=== PATIENT | male | born 2000 | race Two or more races ===

== ENCOUNTER 2025-07-03 23:47 | Emergency (ER) | payer BC, SELFPAY ==
[2025-07-03 23:47] VITALS: BMI 32.3
[2025-07-04 01:29] VITALS: BP 133/89; PULSE 124; RESP 20; TEMP 37.5; O2SAT 97
[2025-07-04 01:34] VITALS: TEMP 37
[2025-07-04] MEDS: KETOROLAC INJ 30 MG/ML VIAL IM (01:34)
--- NOTE | 2025-07-04 01:41 | EDNOTE_ITS ---
Upper Respiratory Inf. RME/HPI General Chief Complaint: Flu Like Symptoms Stated Complaint: FLU LIKE SYMPTOMS Time Seen by Provider: 07/04/25 01:20 Source: patient Arrival date/time: 07/03/25 23:47 Mode of arrival: ambulatory Limitations: no limitations RME / HPI RME / HPI Narrative: This patient is a 24-year-old male who arrives to the ED today with complaints of chills, cough and congestion, headache and general body aches for the past day. Patient states that symptoms began yesterday morning and have been relatively consistent. Patient states possible subjective fevers. Patient was hypertensive and tachycardic on arrival. Related Data Previous Rx's ?Medication ?Instructions ?Recorded ibuprofen 600 mg tablet 600 mg PO Q6H #30 tabs 04/20 acetaminophen 500 mg tablet 500 mg PO Q4H PRN fever or pain 07/04/25 (Tylenol Extra Strength) #30 tabs benzonatate 100 mg capsule 100 mg PO TID PRN cough #20 caps 07/04/25 ibuprofen 800 mg tablet (IBU) 800 mg PO Q8H PRN pain # 20 tabs 07/04/25 oseltamivir 75 mg capsule (Tamiflu) 75 mg PO BID 5 day s #10 caps 07/04/25 Allergies Allergy/AdvReac Type Severity Reaction Status Date / Time No Known Allergies Allergy Verified 04/20/19 21:34 Review of Systems Review of Systems Systems Reviewed: All systems reviewed, normal except as documented Past Medical History Social History SMOKING STATUS: Never smoker ED Exam Narrative Physical exam: Patient looks mild to moderately toxic at time of evaluation. General Limitations: Present no limitations General appearance: Present alert and in distress (Patient appears moderately ill at time of evaluation.) Head Head exam: Present atraumatic Eye Eye exam: Present normal appearance, PERRL and EOMI ENT ENT exam: Present other (Patient displays coryza as well as a mildly beefy oropharynx with mild bilateral tonsillar pillar involvement. No exudate noted. Airways patent.) Neck Neck exam: Present normal inspection, full ROM and trachea midline Chest Chest inspection: Present normal inspection and symmetric chest wall rise Respiratory Respiratory exam: Present normal lung sounds bilaterally Cardiovascular Cardiovascular exam: Present regular rate, normal rhythm and normal heart sounds Abdominal Exam Abdominal exam: Present soft and normal bowel sounds Extremities Exam Extremities exam: Present normal inspection and full ROM Back Exam Back exam: Present normal inspection and full ROM Neurological Exam Neurological exam: Present alert, oriented X3 and CN II-XII intact Psychiatric Psychiatric exam: Present normal affect and normal mood Skin Skin exam: Present warm, dry, intact and normal color Course Quality Measures none Orders Category Date Time Status Bedside COVID-19 Antigen Test NOW Care 07/04/25 01:27 Active Bedside Influenza A&B Antigen Test NOW Care 07/04/25 01:27 Active Ketorolac Inj [Toradol Inj] Med 07/04/25 01:27 Discontinued 30 mg IM X1 ONE As noted above Vital Signs Vital signs: Vital Signs Temperature 99.5 F 07/04/25 01:29 Pulse Rate 124 H 07/04/25 01:29 Respiratory Rate 20 07/04/25 01:29 Blood Pressure 133/89 H 07/04/25 01:29 Pulse Oximetry (%) 97 07/04/25 01:29 Oxygen Delivery Method Room Air 07/04/25 01:29 As noted above plan Xander thank you ma'am Upper Respiratory Infection MDM Narrative MDM Narrative:: All studies performed the ED were evaluated by me personally. Swab studies confirmed influenza A diagnosis. Patient will be sent home with supportive medication and advised to utilize good hydration and healthy nutrition. Patient data External records reviewed:: [facility] previous records Clinical information provided by:: patient Social determinants that could affect healthcare access:: none Patient has the following chronic illnesses:: None How is presenting disease/condition affected by chronic disease/condition?: no chronic disease Evaluation data The following diagnostics were reviewed and interpreted by me:: other (specify) (None) Lab and/or radiology exams considered but not ordered:: None Interpretation Summary: None Medications / Prescriptions Medications or Prescriptions considered but not ordered:: None Medication administrations:: Medication Administration History Discontinued Medications Ketorolac Tromethamine (Ketorolac Inj 30 Mg/Ml Vial) 30 mg IM X1 ONE Stop: 07/04/25 01:28 Last Admin: 07/04/25 01:34 Dose: 30 mg Documented By: As noted above Consultations Consultation(s) initiated? (list below): No Diagnosis Upper Respiratory Differential Diagnosis: upper respiratory infection and influenza Most likely diagnosis given after review of the tests above:: Influenza A/hide a great really appreciate your patient so much my advice to you sure Admission Indicated Admission indicated?: not indicated Explain why admission is indicated or not indicated:: Unwarranted Admission Request Was there a request for admission?: No Disposition Plan Disposition Plan: Discharge Discharge Attestation Discharge Attestation: The patient and all family members were given an opportunity to ask questions and understood the discharge instructions. Discharge instructions specifically effects, indications for sooner follow up or return to the emergency department, and the expected course of current diagnosis. Patient condition: Stable Discharge Plan Plan Patient Disposition: HOME (Self Care) Prescriptions/Referrals Prescriptions/Med Rec: New ibuprofen [IBU] 800 mg tablet 800 mg PO Q8H PRN (Reason: pain) Qty: 20 0RF acetaminophen [Tylenol Extra Strength] 500 mg tablet 500 mg PO Q4H PRN (Reason: fever or pain) Qty: 30 0RF oseltamivir [Tamiflu] 75 mg capsule 75 mg PO BID 5 Days Qty: 10 0RF benzonatate 100 mg capsule 100 mg PO TID PRN (Reason: cough) Qty: 20 0RF No Action ibuprofen 600 mg tablet 600 mg PO Q6H Qty: 30 0RF Problem List Clinical Impression: Influenza Patient/Caregiver Discharge Instructions Education Materials: The Flu (Influenza) Additional Instructions: Advise utilizing Tamiflu as directed and to completion as well as additional medication as needed. Advise good hydration and healthy nutrition throughout. Print Language: Japanese Stand Alone Forms: [employer] Award Info., Patient Portal Info Letter
[2025-07-04 01:57] VITALS: PULSE 78; RESP 19; TEMP 36.8; O2SAT 96
== END 2025-07-04 01:57 | disposition home or self-care (01) ==
PROVIDERS: Emergency Provider Emergency Medicine
DX: J11.1 Influenza due to unidentified influenza virus with other respiratory manifestations (principal)
CPT/HCPCS: 87502; 87635; 96372; 99282; J1885